=== PATIENT | female | born 1970 | race Caucasian/White ===

== ENCOUNTER → 2022-10-26 01:25 | Outpatient (CLI) | payer BC, SELFPAY ==
--- NOTE | 2022-10-26 07:39 | DI.RAD_ITS ---
Exam(s) XR HIP LT COMPLETE AP PELVIS EXAM: XR HIP LT COMPLETE AP PELVIS CLINICAL HISTORY: gait changes and pain,LT HIP PAIN,M25.552. TECHNIQUE: 2D digital imaging was performed. COMPARISON: No exams were available for comparison FINDINGS: Two views No evidence of pelvic nor hip fracture. No hip joint space narrowing. Additional lateral view the l eft hip reveals no osteophytes. No osseous lesions. Bone density normal IMPRESSION: No significant osseous findings DATA REPOSITORY: RADIATION DOSE DELIVERED:
== END ==
PROVIDERS: PCP Nurse Practitioner Family; Visit Provider Nurse Practitioner Family
DX: M25.552 Pain in left hip (principal)
CPT/HCPCS: 73502

== ENCOUNTER 2024-03-21 01:01 | Outpatient (CLI) | payer BC, SELFPAY ==
[2024-03-21 09:36] LABS: HCT 46.3 % (36.0-46.0); HGB 15.4 g/dL (11.2-15.7); MCH 28.3 pg (27.0-33.0); MCHC 33.3 % (32.0-36.0); MCV 85 fL (80-95); RBC 5.44 10^6/uL (3.93-5.22); RDW 13.5 % (11.7-14.6); RDW-SD 41.7 fL; WBC 8.84 10^3/uL (4.4-10.8)
[2024-03-21 09:58] LABS: Hemoglobin A1C 5.6 % (<5.7)
[2024-03-21 10:34] LABS: Iron 109 ug/dL (50-170); Total Iron Binding Capacity 374 ug/dL (250-450); Transferrin Sat 29 % (15-50)
[2024-03-21 10:39] LABS: ALT 19 U/L (14-59); AST 11 U/L (15-37); Albumin 4.1 g/dL (3.4-5.0); Alkaline Phosphatase 110 U/L (46-116); Anion Gap 11.1 mmol/L (3-11); BUN 17 mg/dL (7-18); Bilirubin, Total 0.87 mg/dL (0.2-1.0); CO2 27.9 mmol/L (21.0-32.0); CREATININE 0.8 mg/dL (0.55-1.02); Calcium 9.4 mg/dL (8.5-10.1); Calculated LDL 140 mg/dL (<100); Chloride 105 mmol/L (98-107); Cholesterol 224 mg/dL (<200); Ferritin 77 ng/mL (8-252); Folate 17.1 ng/mL (8.6-20.0); Glucose 110 mg/dL (74-106); HDL Cholesterol 63 mg/dL (40-60); Magnesium 2.1 mg/dL (1.8-2.4); Potassium 4.1 mmol/L (3.5-5.1); Sodium 144 mmol/L (136-145); TSH 1.66 uIU/mL (0.36-3.74); Total Protein 7.7 g/dL (6.4-8.2); Triglyceride 109 mg/dL (<150); Vitamin B12 436 pg/mL (193-986); Vitamin D 25 Total 22.6 ng/mL (30-100)
[2024-03-21 11:14] LABS: FREE T4 0.91 ng/dL (0.76-1.46)
[2024-03-24 09:36] LABS: Insulin 7.5 uIU/mL (<29.0)
[2024-03-24 11:53] LABS: Lyme Ab w Rflx to Lyme Confirm Negative (Negative)
== END 2024-03-21 01:02 | disposition home or self-care (01) ==
PROVIDERS: Nurse Practitioner; PCP Nurse Practitioner Family; Visit Provider Nurse Practitioner Family
DX: E66.9 Obesity, unspecified (principal); Z86.19 Personal history of other infectious and parasitic diseases
CPT/HCPCS: 36415; 80053; 80061; 82306; 85027; 82607; 82728; 82746; 83036; 83525; 83540; 83550; 83735; 84439; 84443; 86618